=== PATIENT | female | born 1985 | race African-American/Black ===

== ENCOUNTER 2016-12-24 17:47 | Emergency (ER) | payer OTHER, MEDICAID ==
[~2016-12-24] VITALS: Ht 162.6 cm; Wt 104.0 kg
[2016-12-24 17:49] VITALS: BP 127/76; PULSE 109; RESP 20; TEMP 98; O2SAT 100
[2016-12-24] MEDS ORDERED: DICL75TA PO (19:53)
[2016-12-24] MEDS ORDERED: ROBA750T PO (19:53)
[2016-12-24] MEDS ORDERED: CYCLOBENZAPRINE HCL 10 MG TAB PO ONE (20:00)
[2016-12-24] MEDS ORDERED: IBUPROFEN 800 MG TAB PO ONE (20:00)
[2016-12-24] MEDS ORDERED: ACETAMINOPHEN/HYDROcodone 325 MG/5 MG TAB PO ONE (20:00)
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
== END 2016-12-24 20:27 | disposition home or self-care (01) ==
LOC: NEPK 17:47
DX: S39.012A Strain of muscle, fascia and tendon of lower back, initial encounter (principal); S40.021A Contusion of right upper arm, initial encounter; V49.59XA Passenger injured in collision with other motor vehicles in traffic accident, initial encounter; Y92.410 Unspecified street and highway as the place of occurrence of the external cause
CPT/HCPCS: 99284